=== PATIENT | female | born 2000 | race African-American/Black ===

== ENCOUNTER 2020-10-07 12:02 | Emergency (ER) | payer MEDICAID ==
[~2020-10-07] VITALS: Ht 170.2 cm; Wt 71.5 kg
[2020-10-07 12:06] VITALS: Ht 170.2 cm; Wt 71.5 kg
[2020-10-07] MEDS ORDERED: ZANAFLEX4 MG PO (12:49)
[2020-10-07] MEDS ORDERED: MEDROL DOSE PACK4 MG PO (12:49)
[2020-10-07] MEDS ORDERED: NAPROSYN500 MG PO (12:49)
[2020-10-07 13:26] VITALS: BP 128/68
== END 2020-10-07 13:28 | disposition home or self-care (01) ==
LOC: D.ER 12:02
DX: M54.5 Low back pain (principal); M54.16 Radiculopathy, lumbar region